=== PATIENT | male | born 1950 | race Caucasian/White ===

== ENCOUNTER 2018-07-13 13:34 | Emergency (ER) | payer OTHER, MEDICARE ==
[~2018-07-13] VITALS: Ht 172.7 cm; Wt 90.0 kg
[2018-07-13] MEDS ORDERED: CEPHALEXIN500 M1 PO (16:09)
[2018-07-13 16:11] VITALS: BP 143/83
== END 2018-07-13 16:12 | disposition home or self-care (01) | DRG 605 ==
LOC: ED 13:34
PROC: 0HQFXZZ Repair Right Hand Skin, External Approach (ICD-10-PCS; principal; 2018-07-13)
DX: S61.411A Laceration without foreign body of right hand, initial encounter (principal); W11.XXXA Fall on and from ladder, initial encounter; Y93.89 Activity, other specified; Y92.009 Unspecified place in unspecified non-institutional (private) residence as the place of occurrence of the external cause

== ENCOUNTER 2018-10-11 14:24 | Observation (INO) | payer OTHER, MEDICARE ==
[~2018-10-11] VITALS: Ht 172.7 cm; Wt 83.9 kg
[~2018-10-11 14:24] MED LIST: CEPHALEXIN500 M1 PO
[2018-10-11 14:47] LABS: GFR > 60 ML/MIN (>=60 (CALC)); GFR FOR AFR.AMER. > 60 ML/MIN (>=60 (CALC))
[2018-10-11 14:50] LABS: HEMATOCRIT 44.2 % (39.0-50.0); HEMOGLOBIN 14.9 g/dl (14.0-18.0); IMMATURE GRANULOCYTES 0.4 % (0.0-5.0); MEAN CELL VOLUME 90.6 fL CALC (80.0-100.0); MEAN CORPUSCULAR HGB 30.5 pG CALC (26.0-32.0); MEAN CORPUSCULAR HGB CONC 33.7 g/L CALC (32.0-36.0); NEUT# 7.23 thou/uL (1.82-7.42); RED BLOOD COUNT 4.88 mill/uL (4.70-6.10); RED CELL DISTRI WIDTH 12.7 % (11.5-15.5)
[2018-10-11 15:06] LABS: ALBUMIN 4.6 g/dL (3.2-5.0); ALKALINE PHOSPHATASE 91 u/l (38-126); ANION GAP 15 (6-22 (CALC)); BILIRUBIN, TOTAL 0.8 mg/dL (0.0-1.4); BUN 13 mg/dL (8-23); BUN/CREATININE RATIO 15 (12-20 (CALC)); CARBON DIOXIDE 21 mmol/l (22-30); CHLORIDE 106 mmol/l (95-108); CREATININE 0.9 mg/dL (0.7-1.3); GFR > 60 ML/MIN (>=60 (CALC)); GFR FOR AFR.AMER. > 60 ML/MIN (>=60 (CALC)); POTASSIUM 4.1 mmol/l (3.5-5.1); SGOT/AST 37 u/l (19-48); SODIUM 138 mmol/l (137-146); TOTAL PROTEIN 7.6 g/dL (6.3-8.2)
[2018-10-11 15:07] LABS: ACT PARTIAL THROMBO TIME 27.5 SECONDS (20.0-32.5); PROTHROMBIN TIME 10.3 SECONDS (9.0-12.5)
[2018-10-11 15:18] LABS: MYOGLOBIN 59 ng/mL (0 - 121)
[2018-10-11] MEDS ORDERED: ACYCLOVIR400 MG PO (15:28)
[2018-10-11] MEDS ORDERED: AMLODIPINE5 MG PO (15:28)
[2018-10-11] MEDS ORDERED: VITAMIN D-31000 UNI1 PO (15:29)
[2018-10-11 16:00] LABS: URINE BILIRUBIN - DIPSTICK NEGATIVE (NEGATIVE); URINE BLOOD DIPSTICK NEGATIVE (NEGATIVE); URINE COLOR YELLOW; URINE GLUCOSE - DIPSTICK NEGATIVE (NEGATIVE); URINE KETONE NEGATIVE (NEGATIVE); URINE LEUK ESTERASE NEGATIVE (NEGATIVE); URINE NITRITE - DIPSTICK NEGATIVE (Negative); URINE PROTEIN - DIPSTICK NEGATIVE (NEG-TRACE); URINE SPECIFIC GRAVITY >=1.030; URINE UROBILINOGEN - DIPSTICK 0.2 E.U./dL (0.2)
[2018-10-11 18:30] VITALS: BP 117/72
[2018-10-11] MEDS ORDERED: TRAZODONE HCL50 MG PO (20:11)
[2018-10-11] MEDS ORDERED: RESTORIL15 M1 PO (20:12)
[2018-10-12 00:35] VITALS: BP 103/62
[2018-10-12 04:05] VITALS: BP 97/61
[2018-10-12 05:01] LABS: HEMATOCRIT 41.4 % (39.0-50.0); HEMOGLOBIN 13.9 g/dl (14.0-18.0); IMMATURE GRANULOCYTES 0.3 % (0.0-5.0); MEAN CELL VOLUME 90.6 fL CALC (80.0-100.0); MEAN CORPUSCULAR HGB 30.4 pG CALC (26.0-32.0); MEAN CORPUSCULAR HGB CONC 33.6 g/L CALC (32.0-36.0); NEUT# 3.34 thou/uL (1.82-7.42); RED BLOOD COUNT 4.57 mill/uL (4.70-6.10); RED CELL DISTRI WIDTH 12.7 % (11.5-15.5)
[2018-10-12 05:21] LABS: ALKALINE PHOSPHATASE 70 u/l (38-126); ANION GAP 11 (6-22 (CALC)); BILIRUBIN, TOTAL 1.1 mg/dL (0.0-1.4); BUN 10 mg/dL (8-23); BUN/CREATININE RATIO 13 (12-20 (CALC)); CARBON DIOXIDE 24 mmol/l (22-30); CHLORIDE 107 mmol/l (95-108); CREATININE 0.8 mg/dL (0.7-1.3); GFR > 60 ML/MIN (>=60 (CALC)); GFR FOR AFR.AMER. > 60 ML/MIN (>=60 (CALC)); MAGNESIUM 1.8 mg/dL (1.6-2.3); POTASSIUM 3.9 mmol/l (3.5-5.1); SGOT/AST 28 u/l (19-48); SODIUM 138 mmol/l (137-146)
[2018-10-12 05:22] LABS: ALBUMIN 3.6 g/dL (3.2-5.0)
[2018-10-12 08:57] VITALS: BP 105/67
[2018-10-12 11:03] VITALS: BP 114/68
== END 2018-10-12 13:36 | disposition home or self-care (01) | DRG 948 ==
LOC: ED 14:24 → ED-I 16:51 → ED 17:08 → MS2 17:09
PROVIDERS: Family Medicine; ADMIT Internal Medicine Nephrology; ATTEND Internal Medicine Nephrology
DX: R41.82 Altered mental status, unspecified (principal); R29.810 Facial weakness; I10 Essential (primary) hypertension; G89.29 Other chronic pain; M54.9 Dorsalgia, unspecified; E56.0 Deficiency of vitamin E
CPT/HCPCS: J1650; Q9967

== ENCOUNTER 2019-02-10 12:37 | Emergency (ER) | payer OTHER, MEDICARE ==
[~2019-02-10] VITALS: Ht 172.7 cm; Wt 75.0 kg
[~2019-02-10 12:37] MED LIST changes: +ACYCLOVIR400 MG PO; +AMLODIPINE5 MG PO; +RESTORIL15 M1 PO; +TRAZODONE HCL50 MG PO; +VITAMIN D-31000 UNI1 PO
[2019-02-10 13:34] VITALS: BP 142/72
== END 2019-02-10 13:38 | disposition home or self-care (01) | DRG 156 ==
LOC: ED 12:37
PROC: 09C37ZZ Extirpation of Matter from Right External Auditory Canal, Via Natural or Artificial Opening (ICD-10-PCS; principal; 2019-02-10)
DX: T16.1XXA Foreign body in right ear, initial encounter (principal); I10 Essential (primary) hypertension; X58.XXXA Exposure to other specified factors, initial encounter

== ENCOUNTER 2020-07-04 11:50 | Emergency (ER) | payer OTHER ==
[~2020-07-04] VITALS: Ht 170.2 cm; Wt 91.0 kg
[2020-07-04 12:43] VITALS: BP 143/81
== END 2020-07-04 12:43 | disposition home or self-care (01) | DRG 605 ==
LOC: ED 11:50
DX: S80.11XA Contusion of right lower leg, initial encounter (principal); I10 Essential (primary) hypertension; W21.89XA Striking against or struck by other sports equipment, initial encounter; Y93.I9 Activity, other involving external motion

== ENCOUNTER 2021-01-14 10:30 | Emergency (ER) | payer OTHER ==
[~2021-01-14] VITALS: Ht 170.2 cm; Wt 75.0 kg
[2021-01-14 11:22] LABS: GFR > 60 ML/MIN (>=60 (CALC)); GFR FOR AFR.AMER. > 60 ML/MIN (>=60 (CALC))
[2021-01-14 11:24] LABS: HEMATOCRIT 47.2 % (39.0-50.0); HEMOGLOBIN 15.4 g/dl (14.0-18.0); IMMATURE GRANULOCYTES 0.6 % (0.0-5.0); MEAN CELL VOLUME 93.3 fL CALC (80.0-100.0); MEAN CORPUSCULAR HGB 30.4 pG CALC (26.0-32.0); MEAN CORPUSCULAR HGB CONC 32.6 g/dL CAL (32.0-36.0); NEUT# 8.32 thou/uL (1.82-7.42); RED BLOOD COUNT 5.06 mill/uL (4.70-6.10)
[2021-01-14 11:35] LABS: ALBUMIN 3.3 g/dL (3.2-5.0); ALKALINE PHOSPHATASE 101 u/l (38-126); ANION GAP 10 (6-22 (CALC)); BUN 10 mg/dL (8-23); BUN/CREATININE RATIO 16 (12-20 (CALC)); CARBON DIOXIDE 26 mmol/l (22-30); CHLORIDE 103 mmol/l (95-108); CREATININE 0.7 mg/dL (0.7-1.3); GFR > 60 ML/MIN (>=60 (CALC)); GFR FOR AFR.AMER. > 60 ML/MIN (>=60 (CALC)); POTASSIUM 4.1 mmol/l (3.5-5.1); SGOT/AST 42 u/l (19-48); SODIUM 136 mmol/l (137-146); TOTAL PROTEIN 6.4 g/dL (6.3-8.2)
[2021-01-14 11:36] LABS: BILIRUBIN, TOTAL 0.5 mg/dL (0.0-1.4)
[2021-01-14] MEDS ORDERED: DOXYCYC MONO100 M2 PO (12:21)
[2021-01-14] MEDS ORDERED: AMOX/K CLAV875 M1 PO (12:21)
[2021-01-14] MEDS ORDERED: ELIQUIS5 MG PO (12:21)
[2021-01-14] MEDS ORDERED: ELIQUIS STARTER5 MG PO (12:21)
[2021-01-14 13:19] VITALS: BP 133/85
== END 2021-01-14 13:31 | disposition home or self-care (01) | DRG 177 ==
LOC: ED 10:30
PROVIDERS: Family Medicine
DX: U07.1 COVID-19 (principal); J12.82 Pneumonia due to coronavirus disease 2019; I26.99 Other pulmonary embolism without acute cor pulmonale; I10 Essential (primary) hypertension; K21.9 Gastro-esophageal reflux disease without esophagitis
CPT/HCPCS: Q9967

== ENCOUNTER 2021-02-08 18:16 | Observation (INO) | payer OTHER ==
[~2021-02-08] VITALS: Ht 170.2 cm; Wt 80.0 kg
[2021-02-08] VITALS (7 sets, daily range): BP systolic 90–119; BP diastolic 66–74
[~2021-02-08 18:16] MED LIST changes: +AMOX/K CLAV875 M1 PO; +DOXYCYC MONO100 M2 PO; +ELIQUIS STARTER5 MG PO; +ELIQUIS5 MG PO
--- NOTE | 2021-02-08 18:18 | NUR ---
AMBULATED TO ROOM WITH SLOW STEADY GAIT IN NO DISTRESS
[2021-02-08 18:47] LABS: HEMATOCRIT 46.7 % (39.0-50.0); HEMOGLOBIN 15.2 g/dl (14.0-18.0); IMMATURE GRANULOCYTES 0.1 % (0.0-5.0); MEAN CELL VOLUME 92.7 fL CALC (80.0-100.0); MEAN CORPUSCULAR HGB 30.2 pG CALC (26.0-32.0); MEAN CORPUSCULAR HGB CONC 32.5 g/dL CAL (32.0-36.0); NEUT# 4.74 thou/uL (1.82-7.42); RED BLOOD COUNT 5.04 mill/uL (4.70-6.10); RED CELL DISTRI WIDTH 13.3 % (11.5-15.5)
--- NOTE | 2021-02-08 18:54 | NUR ---
PATIENT LYING IN BED WITH SUPPORT PERSON AT BEDSIDE
[2021-02-08 19:05] LABS: ALBUMIN 4.1 g/dL (3.2-5.0); ALKALINE PHOSPHATASE 87 u/l (38-126); ANION GAP 13 (6-22 (CALC)); BILIRUBIN, TOTAL 0.7 mg/dL (0.0-1.4); BUN 13 mg/dL (8-23); BUN/CREATININE RATIO 18 (12-20 (CALC)); CARBON DIOXIDE 24 mmol/l (22-30); CHLORIDE 108 mmol/l (95-108); CREATININE 0.8 mg/dL (0.7-1.3); GFR > 60 ML/MIN (>=60 (CALC)); GFR FOR AFR.AMER. > 60 ML/MIN (>=60 (CALC)); LIPASE 142 u/l (23-300); MAGNESIUM 1.8 mg/dL (1.6-2.3); POTASSIUM 4.2 mmol/l (3.5-5.1); SGOT/AST 35 u/l (19-48); SODIUM 140 mmol/l (137-146); TOTAL PROTEIN 7.7 g/dL (6.3-8.2)
[2021-02-08 19:09] LABS: ACT PARTIAL THROMBO TIME 25.2 SECONDS (20.0-32.5); PROTHROMBIN TIME 10.5 SECONDS (9.0-12.5)
--- NOTE | 2021-02-08 19:35 | NUR ---
PT HAS BEEN BOOLUSED CARDIZEM AND ON A CONTINUOUS CARDIZEM DRIP SEE VS FLOW SHEET NO C/O PAIN NO DYSPNEA.
[2021-02-08 19:40] LABS: URINE BILIRUBIN - DIPSTICK NEGATIVE (NEGATIVE); URINE BLOOD DIPSTICK NEGATIVE (NEGATIVE); URINE COLOR YELLOW; URINE GLUCOSE - DIPSTICK NEGATIVE (NEGATIVE); URINE KETONE NEGATIVE (NEGATIVE); URINE LEUK ESTERASE NEGATIVE (NEGATIVE); URINE PROTEIN - DIPSTICK NEGATIVE (NEG-TRACE); URINE SPECIFIC GRAVITY 1.025; URINE UROBILINOGEN - DIPSTICK 0.2 E.U./dL (0.2)
[2021-02-08 19:48] LABS: URINE NITRITE - DIPSTICK NEGATIVE (Negative)
--- NOTE | 2021-02-08 20:00 | NUR ---
DR RICO DISCUSES WITH PT AND SPOUSE CANCELLED THE CTA, TO THEIR SITISFACTION NO TACHY RHYTHMS NO PAIN OR SOB
--- NOTE | 2021-02-08 20:40 | NUR ---
CONT AFIB NO PAIN NO DYSPNEA W/P/D SKIN
[2021-02-08 20:41] LABS: TSH, 3RD GENERATION 1.15 uIU/mL (0.47 - 4.68)
--- NOTE | 2021-02-08 21:10 | NUR ---
PHONE REPORT TO NURSE ZUNIGA IN ICU-
--- NOTE | 2021-02-08 21:15 | NUR ---
PT TRANSPORTED TO ICU RM4 VIA STRETCHER ON MONITOR IN C AFIB IN PAINFREE STABLE CONDITION
--- NOTE | 2021-02-08 22:15 | NUR ---
BP 109/67, HR 65. PHYSICIAN NOTIFIED OF CHANGES AND NEW ORDERS RECEIVED FOR PT COAGULATION AND SOB. PT ALSO ASKED FOR LOSENGES AND SOMETHING FOR MILD BACK PAIN, NEW ORDERS RECEIVED AT THIS TIME.
--- NOTE | 2021-02-08 22:41 | NUR ---
PT'S BP DOWN TO 90/66, HR65. CARDIZEM DRIP TITRATED DOWN TO 5MG/HR.
--- NOTE | 2021-02-08 23:18 | NUR ---
PT MEDICATED ORDERS PROVIDE AND PT ASSISTED USING URINAL. PT BACK IN BED, HR 65 AND BP 108/65. 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 I EXPLAINED IT TO HIM WHAT POC IS, WHAT WE ARE GIVING AND WHY. VERBALIZED UNDERSTANDING.
--- NOTE | 2021-02-08 23:32 | NUR ---
PT ASKED THAT I TALK WITH HIS VIA TEXT TO GIVE INFORMATION TO TREATMENT. I ADVISED HER TO HIS MEDICATIONS ADMINISTERED AND PURPOSE. SHE VERBALIZED UNDERSTANDING AND THANKED ME FOR THE UPDATE. PT USING URINAL AT THIS TIME.
[2021-02-09] VITALS (8 sets, daily range): BP systolic 108–120; BP diastolic 72–77
--- NOTE | 2021-02-09 03:25 | NUR ---
PT APPEARS TO BE SLEEPING, NO S/O DISTRESS NOTED AT THIS TIME. V/S STABLE, HR 62
[2021-02-09 05:07] LABS: HEMATOCRIT 43.8 % (39.0-50.0); HEMOGLOBIN 14.3 g/dl (14.0-18.0); IMMATURE GRANULOCYTES 0.3 % (0.0-5.0); MEAN CELL VOLUME 92.6 fL CALC (80.0-100.0); MEAN CORPUSCULAR HGB 30.2 pG CALC (26.0-32.0); MEAN CORPUSCULAR HGB CONC 32.6 g/dL CAL (32.0-36.0); NEUT# 4.33 thou/uL (1.82-7.42); RED BLOOD COUNT 4.73 mill/uL (4.70-6.10); RED CELL DISTRI WIDTH 13.4 % (11.5-15.5)
--- NOTE | 2021-02-09 05:37 | NUR ---
PT WAS SLEEPING, AWOKE TO MY ENTERING. DENIED ANY NEEDS OR DISTRESSES AT THIS TIME. URINAL EMPTIED OF 600CC OF CLEAR YELLOW URINE. V/S STABLE AT THIS TIME. HR NSR 65.
--- NOTE | 2021-02-09 08:14 | NUR ---
ALERT AND ORIENTED X4. NO C/O PAIN VOICED. HEART RATE DIPPED TO 58-59 CARDIZEM GTT TITRATED OFF.
--- NOTE | 2021-02-09 09:37 | NUR ---
DR COOMBS IN TO SEE PT.
[2021-02-09] MEDS ORDERED: OMEPRAZOLE20 M1 PO (09:59)
[2021-02-09] MEDS ORDERED: ACYCLOVIR400 MG PO (10:07)
[2021-02-09] MEDS ORDERED: LIPITOR40 M1 PO (10:10)
[2021-02-09] MEDS ORDERED: TAMSULOSIN0.4 MG PO (10:12)
[2021-02-09] MEDS ORDERED: VITAMIN D325 MCG (10:14)
[2021-02-09] MEDS ORDERED: CALCIUM MAGNESIUM & PO (10:18)
[2021-02-09] MEDS ORDERED: TESSALON PERLE100 MG PO (10:25)
[2021-02-09] MEDS ORDERED: CARAFATE PO (10:28)
--- NOTE | 2021-02-09 10:30 | NUR ---
RECIEVED FIRST DOSE OF LOPRESSOR.
[2021-02-09] MEDS ORDERED: METHOCARBAMOL500 MG PO (10:31)
--- NOTE | 2021-02-09 12:42 | NUR ---
TOLERATING LOPRESSOR WELL. NO S/S OF CARDIAC COMPLICATIONS NOTED.
[2021-02-09] MEDS ORDERED: LOPRESSOR25 MG PO (13:09)
--- NOTE | 2021-02-09 13:32 | NUR ---
RECIEVED DISCHARGE ORDERS FROM DR COOMBS. CASE MANAGEMENT MADE AWARE OF DISCHARGE PRESCRIPTION TO BE SENT TO [facility]
--- NOTE | 2021-02-09 14:01 | NUR ---
DISCHARGE INSTRUCTIONS PROVIDED AND RECIEVED WELL. PRESCRIPTION FOR LOPRESSOR GIVEN TO PT PER REQUEST R/T [facility] CLOSED TODAY DUE TO HOILDAY SIG OTHER STATES. "IT WILL TAKE TWO DAYS TO GET THE DRUGS." REFUSED WHEELCHAIR. PIV TO LAC AND RAC REMOVED TOLERATED WELL. AMBLUTATED SAFELY OFF OF UNIT.
== END 2021-02-09 13:55 | disposition home or self-care (01) | DRG 310 ==
LOC: ED 18:16 → ICU 20:44
PROVIDERS: Family Medicine; Hospitalist; ADMIT Internal Medicine; ATTEND Internal Medicine
DX: I48.92 Unspecified atrial flutter (principal); I10 Essential (primary) hypertension; E78.00 Pure hypercholesterolemia, unspecified; Z86.711 Personal history of pulmonary embolism; Z79.01 Long term (current) use of anticoagulants; Z86.16 Personal history of COVID-19; Z20.822 Contact with and (suspected) exposure to COVID-19